=== PATIENT | female | born 1970 | race Caucasian/White ===

== ENCOUNTER 2018-05-30 16:17 | Emergency (ER) | payer BC, SELFPAY ==
[2018-05-30 16:17] VITALS: BP 142/55; PULSE 128; RESP 20; TEMP 36.2; O2SAT 98; BMI 31.6
--- NOTE | 2018-05-30 16:27 | CT_ITS ---
STUDY: CT ABDOMEN AND PELVIS WITH CONTRAST REASON FOR EXAM: Female, 48 years old. Lower abdominal pain with fever, Nausea and vomiting for 2 weeks RADIATION DOSAGE (If Supplied By Facility): CTDIvol = ( 17.24 ) mGy, DLP = ( 1139.27 ) mGycm TECHNIQUE: Transaxial images were obtained from the dome of the diaphragm to the symphysis pubis with oral contrast. 100ML ml of Isovue 300 contrast was administered. Sagittal and coronal images were reconstructed. Individualized dose optimization techniques were used for this CT. COMPARISON: 01/08/2014 FINDINGS: Mild atelectasis in the lung bases. The visualized portions of the heart are within normal limits. No hepatic masses. Mild focal fatty infiltration adjacent to the falciform ligament. There are surgical clips in the gallbladder fossa consistent with a prior cholecystectomy. Expected mild degree of intrahepatic or extra hepatic bile duct dilation. Normal spleen. Normal pancreas. There is a 1.8 cm solid nodule of the left renal gland that is larger when compared to the prior study (previously measured 8 mm). Mild under rotation of the right kidney. Normal left kidney. Normal visualized stomach. Normal small intestine. Right lateral to the sigmoid colon, there is a heterogeneous fluid collection measuring 7.8 x 4.7 x 6.6 cm with an air-fluid level (image 92). The fluid collection is contiguous with the sigmoid colon. Diffuse sigmoid colon wall thickening is identified beginning on image 86 extending to image 97. Moderate multifocal diverticulosis identified. There is a loop of small bowel superior and right lateral to the fluid collection which shows mild degree of wall thickening (less conspicuous as compared to colon wall thickening). There are surgical clips in the region of the appendix consistent with a prior appendectomy. There is diffuse atherosclerotic calcification of the abdominal aorta, without a demonstrated aneurysm. Normal inferior vena cava. Normal retroperitoneum. There is wall thickening of the superior urinary bladder wall, which is contiguous with the pelvic fluid collection. No urinary bladder air. Supraumbilical fat-containing hernia is larger when compared to the prior study. Normal osseous structures. CT/Abdomen/Pelvis WITH Contrast IMPRESSION: 1. 7.8 x 4.7 x 6.6 cm Central pelvic fluid collection with air-fluid level contiguous with sigmoid colon. Diffuse sigmoid colon wall thickening. Differential considerations include diverticular abscess versus perforation associated with neoplasm (given long segment sigmoid colon wall thickening). Probable reactive enteritis of mid ileum. Reactive wall thickening of the urinary bladder (superior) but NO urinary bladder luminal air to suggest fistula. 2. 1.8 cm left adrenal gland nodule (previously measured 8 mm). Could represent interval growth of adenoma (atypical) versus neoplasm/metastasis. Adrenal protocol MRI may be useful to distinguish. 3. Supraumbilical fat-containing hernia has increased in size since prior study. Electronically Signed: Christiano Jo MD at 18:50 EST , Service support ,
--- NOTE | 2018-05-30 16:50 | ED.DCSUM_ITS ---
- ER Visit Summary Date of Service: 05/30/18 Chief Complaint: Abdominal pain, fever History of Present Illness: The patient is a 48 F who is otherwise healthy and takes no daily medications presents with abdominal pain and fever. Patient states over the past 2 weeks, she has had worsening abdominal pain. States is worse in her left lower quadrant. She will intermittently have fevers and chills. She states she still moving her bowels without issue. She has had no diarrhea. She has had prior hysterectomy, appendectomy, cholecystectomy, and hernia repair. She has been taking ibuprofen which she states will control fever but her pain will come back. She denies any chest pain or back pain. She does admit to some urinary frequency. Physical Examination: Vital signs reviewed General: Well-nourished, well-developed Head: Normocephalic, atraumatic Eyes: Pupils equal and reactive, extraocular muscles intact Neck, supple, no lymphadenopathy Heart: Regular rate and rhythm Respiratory: No distress, clear bilaterally Abdomen: Soft, tender in the left lower quadrant with voluntary guarding, nondistended, no peritoneal signs Back: Nontender Extremities: Nontender, no edema, no cords Skin: Normal color no rash Neuro: Alert and oriented, no focal or lateralizing deficits Test Results: [] Emergency Department Course and Treatment: The patient presents with abdominal pain in the left lower quadrant with fevers and chills. She is also had nausea and vomiting. She did have voluntary guarding. I was concerned for diverticulitis, but also had concern for abscess given her progression of symptoms. IV was established. Patient was given fluids. She initially declined analgesics. However, her pain did return and she was given morphine with some improvement. Screening labs do show leukocytosis but were otherwise unremarkable. Her CT does show diverticulitis with a large intra-abdominal abscess. I did discuss the patient with Dr. Baron. Unfortunately, we do not have interventional radiology she is likely going to need a percutaneous drain. I did discuss with the patient and she requested transfer to [facility]. The patient was discussed with Dr. Irene for surgery and was accepted. She will be transferred for surgical evaluation and likely drainage. Treatment Plan: [] Disposition: Transfer Impression: 1. Acute diverticulitis with abscess This note was generated with [employer] software. It may contain incorrect words, spelling, and punctuation that were not noted in review of the chart prior to signing ED Disposition - Plan for ED Patient: Chief Complaint: Abd Pain Referrals: Wiliam Kilgore MD [Primary Care Provider] -
[2018-05-30] MEDS: Ondansetron 4 MG/2 ML Vial IV (16:55)
[2018-05-30] MEDS: 0.9% Normal Saline 1,000 ML 1000 ML IV (16:56)
[2018-05-30 17:04] LABS: Absolute Lymphocyte Count 1.21 X10^3/ul (0.83-4.51); Absolute Neutrophil Count 13.8 X10^3/uL (2.0-7.7); Basophil# 0.01 X10^3/uL; Basophil% 0.1 % (0-1); Eosinophil# 0.19 X10^3/uL; Eosinophils% 1.1 % (0-5); Hematocrit 38.2 % (37-47); Hemoglobin 12.4 g/dl (12.0-15.0); Lymphocyte # 1.21 X10^3/ul (4.0); Mean Corp Hgb Conc 32.5 g/gl (32-36); Mean Corpuscular Hgb 27.8 pg (27.0-32.0); Mean Corpuscular Volume 85.7 fL (81-99); Mean Platelet Vol. 8.9 fl (6.2-12.0); Monocyte# 2.04 X10^3/uL; Monocyte% 11.8 % (0-10); Neutrophil # 13.75 X10^3/uL (2.7-7.7); Neutrophil % 79.7 % (47-70); Platelet Count 383 K/mm3 (150-450); RBC Distribution Width CV 14.7 % (11.6-14.6); RBC Distribution Width SD 46.8 fl (35.1-43.9); Red Blood Count 4.46 M/mm3 (4.2-5.4); White Blood Count 17.3 K/mm3 (4.4-11.0)
[2018-05-30 17:05] LABS: Differential Indicated SCAN CRITERIA MET; POSITIVE COUNT NO; POSITIVE DIFFERENTIAL YES; POSITIVE MORPHOLOGY NO
[2018-05-30 17:09] LABS: Lipase 63 U/L (73-393)
[2018-05-30 17:12] LABS: Bacteria 0 SEEN /hpf (None Seen); Squamous Epithelial Cells - UA 0 SEEN /hpf (5-10)
[2018-05-30 17:19] LABS: Differential Comment SCANNED
[2018-05-30 17:23] LABS: Color, Urine Amber (Yellow); Glucose, Dipstick Normal (Normal); Ketone-Dipstick 5 mg/dl (Negative); Leukocyte Esterase-Dipstick 25 /ul (Negative); Nitrite-Dipstick Negative (Negative); Occult Blood-Urine 150 /ul (Negative); Protein-Dipstick 30 mg/dl (Negative); Urine Clarity Sl. Cloudy (Clear); Urine Urobilinogen 1 mg/dl (Normal)
[2018-05-30 17:25] LABS: Urine Bilirubin Dipstick 1 mg/dL (Negative)
[2018-05-30 17:32] VITALS: BP 114/61; PULSE 100; RESP 22; O2SAT 96
[2018-05-30 17:46] LABS: White Blood Cells 0-5 SEEN /hpf (0-5)
[2018-05-30 17:47] LABS: Red Blood Cells-Urine 0-5 SEEN /hpf (0-5)
[2018-05-30 17:48] LABS: Hyaline Cast 0-5 SEEN /lpf (0-5); Mucous, Urine 2+ /hpf (<or=2+)
[2018-05-30] MEDS: Morphine 4 MG/ML Syringe IV (17:56)
[2018-05-30 18:06] LABS: ALB/GLOB Ratio 0.5 RATIO (0.9-2.4); AST(SGOT) 21 U/L (15-37); Alanine Aminotransfer ALT/SGPT 38 U/L (13-56); Albumin, Serum 2.4 g/dL (3.2-5.0); Alkaline Phosphatase 106 U/L (45-117); Anion Gap 10 (5-15); BUN 9 mg/dL (7-18); BUN/Creat Ratio 13.7 RATIO (10-20); Calcium,Total 8.6 mg/dL (8.5-10.1); Chloride 102 mmol/L (98-107); Creatinine, Serum 0.66 mg/dL (0.55-1.02); EST Glomerular Filtration Rate 101 mL/min (>60); Est Glom Filt Rate - Afr Amer 123 mL/min (>60); Estimated Creatinine Clearance 92.78 ml/min; Globulin 5.3 g/dL (2.2-4.2); Glucose 128 mg/dL (74-106); Potassium 3.6 mmol/L (3.5-5.1); Protein, Total 7.7 g/dL (6.4-8.2); Sodium Level 138 mmol/L (136-145)
[2018-05-30] MEDS: 0.9% Normal Saline 1,000 ML 999 ML IV (18:52)
[2018-05-30] MEDS: HYDROmorphone 1 MG/ML Syringe IV (18:52)
[2018-05-30 19:17] LABS: Lactic Acid 0.5 mmol/L (0.4-2.0)
[2018-05-30 20:00] VITALS: BP 96/67; PULSE 97; RESP 16; O2SAT 94
[2018-05-30] MEDS: HYDROmorphone 0.5 MG/0.5 ML SYRINGE IV (20:25)
--- NOTE | 2018-05-30 20:29 | ED.RN ---
pt has SL in left and right AC. MD acuña with private car transfer to [facility] leaving those in. RN at [facility] aware.
== END 2018-05-30 21:00 | disposition short-term general hospital (02) ==
LOC: ED 17:08
PROVIDERS: Emergency Provider Emergency Medicine; Family Provider Family Medicine; PCP Family Medicine
DX: K57.80 Diverticulitis of intestine, part unspecified, with perforation and abscess without bleeding (principal); Z90.49 Acquired absence of other specified parts of digestive tract; Z90.710 Acquired absence of both cervix and uterus; Z72.0 Tobacco use
CPT/HCPCS: 36415; 74177; 80053; 81001; 83605; 83690; 85025; 87040; 96361; 96365; 96375; 96376; 99284; J7030; Q9967; A4216; J2405

== ENCOUNTER 2018-06-22 07:50 | Emergency (ER) | payer BC, SELFPAY ==
[2018-06-22 07:51] VITALS: BP 111/53; PULSE 144; RESP 18; TEMP 36.4; O2SAT 97; BMI 30.7
[2018-06-22 07:59] VITALS: PULSE 137; RESP 18; TEMP 36.4; O2SAT 100
--- NOTE | 2018-06-22 08:02 | CT_ITS ---
STUDY: CT ABDOMEN AND PELVIS WITH CONTRAST REASON FOR EXAM: Female, 48 years old. History of recent abscess drainage with the percutaneous drainage catheter removal. Now presents with abdominal pain and discharge. RADIATION DOSAGE (If Supplied By Facility): CTDIvol = ( 17.08 ) mGy, DLP = ( 1059.24 ) mGycm TECHNIQUE: Transaxial images were obtained from the dome of the diaphragm to the symphysis pubis without oral contrast. 100 ml of Isovue 300 contrast was administered. Sagittal and coronal images were reconstructed. Individualized dose optimization techniques were used for this CT. COMPARISON: Comparison is made with prior study dated May 30, 2018. FINDINGS: Minimal increased markings at the right lung base suggestive of bibasilar atelectasis. The visualized portions of the heart are within normal limits. Minimal dilatation of the intrahepatic biliary ducts. There are surgical clips in the gallbladder fossa consistent with a prior cholecystectomy. Normal spleen. Normal pancreas. Stable 1.8 cm nodule in the left adrenal gland. Normal right kidney. Normal left kidney. There is a small hiatal hernia. Normal small intestine. There are multiple colonic diverticula consistent with diverticulosis. The previously seen fluid collection along the mesenteric side of the sigmoid colon in the pelvis has decreased in size. It presently measures 5.3 cm x 3.1 cm. A small amount of fluid is also seen in the posterior cul-de-sac. The patient is status post appendectomy. Normal abdominal aorta. Normal inferior vena cava. Normal retroperitoneum. Normal urinary bladder. There is absence of the uterus consistent with a prior hysterectomy. Small midline ventral hernia containing fat. This is just cephalad to the umbilicus. The neck of the hernia measures 2 cm. Peritoneal fat is seen within the hernia. There is also evidence of prior mesh placement deep to the umbilicus. There is evidence of increased markings in the subcutaneous fat in the lower anterior abdominal wall. There is a focal 2.9 cm x 2.3 cm fluid collection just deep to the underlying skin in the lower anterior abdominal wall. Normal osseous structures. CT/Abdomen/Pelvis W IV Cont ONLY IMPRESSION: Residual 5.3 cm x 3.1 cm fluid collection along the mesenteric side of the sigmoid colon. This has decreased in size as compared to prior study. Increased markings in the subcutaneous tissues overlying the lower anterior abdomen with a 2.9 cm x 2.3 cm localized fluid collection. Small amount of fluid is seen in the cul-de-sac. Electronically Signed: Gómez Bass MD at 9:36 EST Tel [phone], Service support ,
--- NOTE | 2018-06-22 08:21 | ED.VISSUMM ---
- ER Visit Summary Date of Service: 06/22/18 Chief Complaint: Abdominal pain, wound drainage History of Present Illness: The patient is a 48 F who presents with abdominal pain and drainage from a previous percutaneous drain wound. 3 weeks ago she was seen here and was diagnosed with diverticulitis with an intra-abdominal abscess. She was transferred to [facility] and had a percutaneous drain. This drain was removed 4 days ago. She had a lot of pain this morning and while driving here she had a lot of drainage coming out of this wound. The pain is sharp in the lower abdomen. Nothing makes it better. She denies nausea, vomiting, diarrhea. She has no fevers currently. She is not currently on any antibiotics. Physical Examination: Vital signs reviewed. HEENT exam unremarkable. Heart is tachycardic and regular rhythm without murmurs. Lungs are clear to auscultation. Abdomen is soft with suprapubic tenderness to palpation. When palpating the area around the wound, there is drainage. Gas does come from this area as well.. Extremities reveal no edema. Skin exam normal. Neurologic exam normal. Test Results: White blood cell count 13.7. Lactate normal. CAT scan with IV contrast reveals a 5 x 3 cm intra-abdominal abscess near the sigmoid colon. She also has a 3 x 2 cm subcutaneous abscess. Emergency Department Course and Treatment: Patient was given morphine, Zofran and IV fluids. She continues to have an intra-abdominal abscess. She also has a subcutaneous abscess which is likely causing the drainage to come out from her wound where the previous drain was. At this point because the patient's symptoms and she continues to have an abscess I discussed with [facility]. They would like to see the patient today. Patient will be transferred there. She will go by private vehicle Treatment Plan: [] Disposition: Transfer Impression: Intra-abdominal abscess This note was generated with [employer] dictation software. It may contain incorrect words, spelling, and punctuation that were not noted in review of the chart prior to signing ED Disposition - Plan for ED Patient: Chief Complaint: Abd Pain Referrals: Wiliam Kilgore MD [Primary Care Provider] -
[2018-06-22] MEDS: Morphine 4 MG/ML Syringe IV (08:26)
[2018-06-22] MEDS: Ondansetron 4 MG/2 ML Vial IV (08:26)
[2018-06-22 08:28] LABS: Absolute Neutrophil Count 10.5 X10^3/uL (2.0-7.7); Basophil# 0.02 X10^3/uL; Basophil% 0.1 % (0-1); Eosinophil# 0.07 X10^3/uL; Eosinophils% 0.5 % (0-5); Hematocrit 45.5 % (37-47); Hemoglobin 14.7 g/dl (12.0-15.0); Lymphocyte % 12.4 % (19-41); Mean Corp Hgb Conc 32.3 g/gl (32-36); Mean Corpuscular Hgb 27.5 pg (27.0-32.0); Mean Platelet Vol. 9.4 fl (6.2-12.0); Monocyte# 1.42 X10^3/uL; Monocyte% 10.3 % (0-10); Neutrophil % 76.6 % (47-70); POSITIVE COUNT NO; POSITIVE DIFFERENTIAL NO; POSITIVE MORPHOLOGY NO; Platelet Count 225 K/mm3 (150-450); RBC Distribution Width CV 15.5 % (11.6-14.6); RBC Distribution Width SD 48.7 fl (35.1-43.9); Red Blood Count 5.35 M/mm3 (4.2-5.4); White Blood Count 13.7 K/mm3 (4.4-11.0)
[2018-06-22 08:44] LABS: ALB/GLOB Ratio 0.7 RATIO (0.9-2.4); AST(SGOT) 9 U/L (15-37); Alanine Aminotransfer ALT/SGPT 18 U/L (13-56); Albumin, Serum 3.4 g/dL (3.2-5.0); Alkaline Phosphatase 85 U/L (45-117); Anion Gap 9 (5-15); BUN 16 mg/dL (7-18); BUN/Creat Ratio 21.8 RATIO (10-20); Calcium,Total 9.1 mg/dL (8.5-10.1); Chloride 106 mmol/L (98-107); Creatinine, Serum 0.73 mg/dL (0.55-1.02); EST Glomerular Filtration Rate 90 mL/min (>60); Est Glom Filt Rate - Afr Amer 108 mL/min (>60); Estimated Creatinine Clearance 83.88 ml/min; Globulin 5.1 g/dL (2.2-4.2); Glucose 141 mg/dL (74-106); Protein, Total 8.5 g/dL (6.4-8.2); Sodium Level 137 mmol/L (136-145)
[2018-06-22 09:10] VITALS: BP 91/46; PULSE 112; RESP 18; TEMP 37.1; O2SAT 95
[2018-06-22] MEDS: 0.9% Normal Saline 1,000 ML 999 ML IV (09:16)
[2018-06-22 10:05] VITALS: BP 108/57; PULSE 105; PULSE 108; RESP 14; RESP 18; TEMP 37.1; O2SAT 99
[2018-06-22 10:09] VITALS: BP 103/62; PULSE 112; RESP 18; O2SAT 99
== END 2018-06-22 10:25 | disposition short-term general hospital (02) ==
PROVIDERS: Emergency Provider Emergency Medicine; Family Provider Family Medicine; PCP Family Medicine
DX: L02.91 Cutaneous abscess, unspecified (principal); Z72.0 Tobacco use
CPT/HCPCS: 74177; 80053; 83605; 85025; 99284; J7030; Q9967; A4216; J2405

== ENCOUNTER 2018-11-11 08:57 | Emergency (ER) | payer BC, SELFPAY ==
[2018-11-11 08:59] VITALS: BP 122/66; PULSE 94; RESP 16; TEMP 36.6; O2SAT 100; BMI 30.8
--- NOTE | 2018-11-11 09:09 | CT_ITS ---
STUDY: CT ABDOMEN AND PELVIS WITH CONTRAST REASON FOR EXAM: Female, 48 years old. Acute onset of abdominal pain. History of prior sigmoid diverticulitis. RADIATION DOSAGE (If Supplied By Facility): CTDIvol = ( 14.50 ) mGy, DLP = ( 1131.16 ) mGycm TECHNIQUE: Transaxial images were obtained from the dome of the diaphragm to the symphysis pubis with oral contrast. 100ml IV/Oral Isovue 300 was administered. Sagittal and coronal images were reconstructed. Individualized dose optimization techniques were used for this CT. COMPARISON: Comparison is made with a prior examination dated June 22, 2018. FINDINGS: Minimal degree of increased markings at the lung bases suggestive of atelectasis. Coronary artery calcification. There is decreased attenuation of the liver consistent with steatosis. Stable mild intrahepatic biliary ductal dilatation. There are surgical clips in the gallbladder fossa consistent with a prior cholecystectomy. Normal spleen. Normal pancreas. Normal bilateral adrenal glands. Normal right kidney. Normal left kidney. Normal visualized stomach. Normal small intestine. There are multiple colonic diverticula consistent with diverticulosis. There are surgical clips in the region of the appendix consistent with a prior appendectomy. Normal abdominal aorta. Normal inferior vena cava. Normal retroperitoneum. Normal urinary bladder. There is absence of the uterus consistent with a prior hysterectomy. Normal abdominal wall. Normal osseous structures. CT/Abdomen/Pelvis WITH Contrast IMPRESSION: No acute abnormality is seen. Electronically Signed: Gómez Bass, at 11:26 EDT , Service support ,
--- NOTE | 2018-11-11 09:10 | ED.VIS.GI ---
History of Present Illness Chief Complaint: Abd Pain Informant: Patient - Abdominal Pain/Flank Pain Onset: Today Timing: Waxes and wanes Quality: Sharp Location: Diffuse Narrative: Patient presenting for evaluation secondary to abdominal pain. Patient has a history of a somewhat recent sigmoidectomy secondary to recurrent diverticulitis. Patient states that about 7:00 this morning she had a sudden onset of colicky abdominal pain. She reports that this will come and go every 10 to 15 minutes and will last about 5 minutes at a time. He has no exacerbating relieving factors. It is not been associated with nausea vomiting diarrhea inability to pass stool or pass gas. Patient denies any presence of fevers associated with this. She is never had any prior similar episodes in the past. Pain is sharp and moderate. Review of systems otherwise negative. Past Medical History - Allergies and Home Meds Allergies/Adverse Reactions: Allergies BEE STINGS Allergy (Uncoded 11/11/18 09:02) Anaphylaxis Primary Care Physician: Wiliam Kilgore MD [Primary Care Provider] - Surgical History: - - Hysterectomy, appendectomy, cholecystectomy, carpal tunnel surgery. Smoking Status: Current every day smoker - Family History Maternal Family History: Reports: No pertinent history Paternal Family History: Reports: - - Depression, of suicide. Review of Systems All systems negative except as indicated General: Denies: Chills, Fever Gastrointestinal: Reports: Abdominal pain. Denies: Nausea, Vomiting, Diarrhea, Constipation Genitourinary: Denies: Dysuria, Hematuria Physical Exam Vital Signs/Narrative: Vital Signs Temp Pulse Resp BP Pulse Ox 11/11/18 08:59 98 F 94 16 122/66 H 100 Inital Vital Signs reviewed: Yes General: Well nourished, Well developed, - - Uncomfortable Head: Normocephalic, Atraumatic Eyes: Perrl, EOMI ENT: Moist mucous membranes, No rhinorrhea Neck: Supple, Nontender Cardiovascular: Regular rate, Regular rhythm, No murmurs Respiratory: No distress, CTA bilaterally, Chest nontender Abdomen: - - Diffuse nonlocalizing tenderness with no palpable masses. No guarding or rigidity noted. Back: Nontender, Normal Inspection Extremities: Nontender, No edema Skin: Normal color, No rash Neurological: Alert, Oriented x3, Cranial nerves II-XII grossly intact, Normal Strength, Normal Sensation Psychological: Normal affect, Normal Mood Diagnostic/Tx/Re-eval - Medical Decision Making Patient presented secondary to abdominal pain in the setting of abdominal surgery. She had diffuse pain, there was some concern for the possibility of bowel obstruction. IV was established laboratory studies were obtained patient was given morphine and Zofran for treatment of symptoms as well as IV fluids. CBC and chemistry were grossly unremarkable, patient has no evidence of elevated anion gap acidosis which makes the likelihood of bowel ischemia very low. CT abdomen and pelvis with p.o. and IV contrast shows no acute pathology. Patient had improvement on subsequent reevaluation. Patient likely is having some abdominal cramping, potentially secondary to some adhesions but there is no evidence of obstruction at this time. I do not believe that she requires admission or further work-up. Patient will be given Bentyl in the emergency department as well as for home, she was given strict return instructions and was instructed that should she not have improvement in 24 hours she should present again for repeat evaluation. She voiced understanding of this and the patient was discharged. Disposition: Home ED Disposition - Plan for ED Patient: Disposition: Home or Assisted Living Diagnosis: Abdominal pain Instructions: ED Abdominal Pain Unkn Cause Prescriptions: Dicyclomine HCl [Bentyl] 20 mg PO TIDAC #20 cap Referrals: Wiliam Kilgore MD [Primary Care Provider] - 1-2 Days if not improving
[2018-11-11] MEDS: 0.9% Normal Saline 1,000 ML 125 ML IV (09:21)
[2018-11-11] MEDS: Morphine 4 MG/ML Syringe IV (09:21)
[2018-11-11] MEDS: Ondansetron 4 MG/2 ML Vial IV (09:22)
[2018-11-11 09:29] LABS: Absolute Lymphocyte Count 2.23 X10^3/ul (0.83-4.51); Absolute Neutrophil Count 5.6 X10^3/uL (2.0-7.7); Basophil# 0.01 X10^3/uL; Basophil% 0.1 % (0-1); Eosinophil# 0.05 X10^3/uL; Eosinophils% 0.6 % (0-5); Hematocrit 47.1 % (37-47); Hemoglobin 15.7 g/dl (12.0-15.0); Lymphocyte # 2.23 X10^3/ul (4.0); Lymphocyte % 26.5 % (19-41); Mean Corp Hgb Conc 33.3 g/gl (32-36); Mean Corpuscular Volume 84.1 fL (81-99); Mean Platelet Vol. 9.7 fl (6.2-12.0); Monocyte# 0.51 X10^3/uL; Monocyte% 6.1 % (0-10); Neutrophil # 5.59 X10^3/uL (2.7-7.7); Neutrophil % 66.5 % (47-70); Platelet Count 209 K/mm3 (150-450); RBC Distribution Width CV 15.8 % (11.6-14.6); RBC Distribution Width SD 48.6 fl (35.1-43.9); White Blood Count 8.4 K/mm3 (4.4-11.0)
[2018-11-11 09:32] LABS: POSITIVE COUNT NO; POSITIVE DIFFERENTIAL NO; POSITIVE MORPHOLOGY NO
[2018-11-11 09:36] LABS: Anion Gap 8 (5-15); BUN 14 mg/dL (7-18); BUN/Creat Ratio 17.9 RATIO (10-20); Calcium,Total 9.7 mg/dL (8.5-10.1); Chloride 106 mmol/L (98-107); Creatinine, Serum 0.78 mg/dL (0.55-1.02); EST Glomerular Filtration Rate 83 mL/min (>60); Est Glom Filt Rate - Afr Amer 100 mL/min (>60); Estimated Creatinine Clearance 78.51 ml/min; Glucose 104 mg/dL (74-106); Potassium 4.4 mmol/L (3.5-5.1); Sodium Level 140 mmol/L (136-145)
[2018-11-11 10:57] VITALS: BP 107/58; PULSE 70; RESP 16; O2SAT 100
[2018-11-11] MEDS: Dicyclomine 10 MG Capsule 20 MG PO (11:52)
== END 2018-11-11 11:57 | disposition home or self-care (01) ==
PROVIDERS: Emergency Provider Emergency Medicine; Family Provider Family Medicine; PCP Family Medicine
DX: R10.9 Unspecified abdominal pain (principal); Z90.49 Acquired absence of other specified parts of digestive tract; Z90.710 Acquired absence of both cervix and uterus; F17.200 Nicotine dependence, unspecified, uncomplicated
CPT/HCPCS: 74177; 80048; 85025; 96361; 96374; 96375; 99284; J7030; Q9967; A4216; J2405

== ENCOUNTER → 2020-05-20 09:52 | Outpatient (REF) | payer BC, SELFPAY | LOC: LABSPEC 09:52 | PROVIDERS: PCP Family Medicine; Visit Provider Family Medicine | DX: Z03.818 Encounter for observation for suspected exposure to other biological agents ruled out (principal) | CPT/HCPCS: 87635; U0003 ==

== ENCOUNTER 2020-10-02 10:44 | Emergency (ER) | payer BC, SELFPAY ==
[2020-10-02 10:45] VITALS: BP 140/77; PULSE 109; RESP 18; TEMP 35.2; O2SAT 97; BMI 35.4
--- NOTE | 2020-10-02 11:51 | CT_ITS ---
STUDY: CT ABDOMEN AND PELVIS WITHOUT CONTRAST REASON FOR EXAM: Female, 50 years old. Abdominal pain. History of diverticulitis. History of cervical carcinoma. RADIATION DOSAGE (If Supplied By Facility): CTDIvol = ( 18.71 ) mGy, DLP = ( 929.97 ) mGycm TECHNIQUE: Transaxial images were obtained from the dome of the diaphragm to the symphysis pubis without oral contrast, and without intravenous contrast. Sagittal and coronal images were reconstructed. Individualized dose optimization techniques were used for this CT. COMPARISON: Comparison is made with prior examination dated 11/11/2018. FINDINGS: Stable mild increased markings at the lung bases suggestive of a scarring and/or atelectasis. The visualized portions of the heart are within normal limits. Normal liver. There are surgical clips in the gallbladder fossa consistent with a prior cholecystectomy. Normal spleen. Normal pancreas. There is a small, circumscribed, smooth, low attenuation left adrenal mass, consistent with an adrenal adenoma. This measures 2.2 cm. This is unchanged. Normal right adrenal gland. Normal right kidney. Normal left kidney. There is a small hiatal hernia. Normal small intestine. There are multiple colonic diverticula consistent with diverticulosis. The patient is status post appendectomy. There is scattered atherosclerotic calcification of the abdominal aorta, without a demonstrated aneurysm. Normal inferior vena cava. Normal retroperitoneum. Normal urinary bladder. There is absence of the uterus consistent with a prior hysterectomy. There is evidence of a large ventral hernia along the inferior abdominal wall. The neck of the hernia measures 5.4 cm. Nondilated small bowel loops are seen within the hernia. There is also evidence of a small umbilical hernia containing fat. The neck of the hernia measures 3.7 cm. There are mild degenerative changes of the visualized lumbar spine. CT/Abdomen/Pelvis without Cont IMPRESSION: There is a large lower anterior abdominal wall hernia containing nondilated small bowel loops. The hernial neck measures 5.4 cm. There is also evidence of a small umbilical hernia containing fat with the neck of the hernia measuring 3.7 cm. Stable adenoma in the right adrenal gland. Electronically Signed: Gómez Bass MD at 13:20 EDT , Service support ,
--- NOTE | 2020-10-02 11:53 | ED.VIS.GEN ---
History of Present Illness Chief Complaint: Abd Pain Narrative: Patient presents with left lower quadrant abdominal pain that started yesterday. She has a history of sigmoid diverticulitis status post colectomy in the past. She has similar symptoms to prior diverticulitis. She denies any fever or chills no constipation. No diarrhea. No nausea or vomiting no back pain or flank pain. She denies any dysuria or hematuria. Past medical history: Diverticulitis Medications: None Social history: Smoker Review of systems: All systems negative except as indicated General: Denies: Fever Eyes: Denies: Visual changes - bilaterally ENT: Denies: Rhinorrhea, Sore throat Cardiovascular: Denies: Chest pain Respiratory: Denies: Dyspnea, Cough Gastrointestinal: Nominal pain as in HPI Genitourinary: Denies: Dysuria Musculoskeletal: Denies: Myalgias Skin: Denies: Rash Neurological: Denies: Headache, no focal weakness Psych: Reports: negative Hematologic: Denies: Easy bruising, Easy bleeding Physical exam General: Appears relatively comfortable in the bed. She does not appear in significant distress. Head: Normocephalic, Atraumatic Eyes: Conjunctiva not pale ENT: Moist mucous membranes Neck: Supple, Nontender, No lymphadenopathy Cardiovascular: Regular rate, Regular rhythm Respiratory: No distress, CTA bilaterally Abdomen: Soft abdomen. There is an umbilical hernia which is reducible. Most of her pain is in the left lower quadrant there is no guarding or rebound. Back: Nontender, Normal Inspection. Negative for: CVA tenderness Extremities: Nontender, No edema Skin: Normal color, No rash Neurological: Alert, Normal Strength, Normal Sensation Psychological: Normal affect Past Medical History - Allergies and Home Meds Allergies/Adverse Reactions: Allergies BEE STINGS Allergy (Uncoded 10/02/20 10:45) Anaphylaxis Primary Care Physician: Wiliam Kilgore MD [Primary Care Provider] - Surgical History: - - Hysterectomy, appendectomy, cholecystectomy, carpal tunnel surgery. Smoking Status: Current every day smoker - Family History Maternal Family History: Reports: No pertinent history Paternal Family History: Reports: - - Depression, of suicide. Physical Exam Vital Signs/Narrative: Vital Signs Temp Pulse Resp BP Pulse Ox 10/02/20 10:45 95.4 F L 109 H 18 140/77 H 97 Diagnostic/Tx/Re-eval - Medical Decision Making Patient is found to have large abdominal wall hernia and umbilical hernia. No evidence of incarceration or bowel dilation or obstruction. Patient will be referred to surgery. I warned her that if her pain gets worse she needs to return to evaluate for bowel obstruction or incarceration. Otherwise patient will be discharged in stable condition. ED Disposition - Plan for ED Patient: Disposition: Home or Assisted Living Diagnosis: Abdominal wall hernia Instructions: ED Hernia (Adult) Prescriptions: Hydrocodone Bitart/Apap 5-325 [[place] 5MG-325MG] 1 tablet PO Q4H PRN PRN 2 Days #10 tab PRN Reason: Pain Prescription Printed Referrals: Kale Hutchins MD [STAFF PHYSICIAN] - 3-5 Days
[2020-10-02 12:19] LABS: Mucous, Urine 0 SEEN /hpf (<or=2+); Red Blood Cells-Urine 0 SEEN /hpf (0-5)
[2020-10-02 12:24] LABS: Absolute Lymphocyte Count 2.23 X10^3/uL (0.83-4.51); Absolute Neutrophil Count 7.9 X10^3/uL (2.0-7.7); Basophil# 0.03 X10^3/uL; Basophil% 0.3 % (0-1); Eosinophil# 0.09 X10^3/uL; Eosinophils% 0.8 % (0-5); Glucose, Dipstick Normal (Normal); Hematocrit 45.1 % (37-47); Hemoglobin 14.5 g/dL (12.0-15.0); Ketone-Dipstick Negative (Negative); Leukocyte Esterase-Dipstick Negative /ul (Negative); Lymphocyte # 2.23 X10^3/ul (4.0); Lymphocyte % 19.5 % (19-41); Mean Corp Hgb Conc 32.2 g/dL (32-36); Mean Corpuscular Hgb 28.8 pg (27.0-32.0); Mean Corpuscular Volume 89.5 fL (81-99); Mean Platelet Vol. 10.3 fl (6.2-12.0); Monocyte# 0.96 X10^3/uL; Monocyte% 8.4 % (0-10); NRBC Flagged by Analyzer 0 % (0-5); Neutrophil # 7.94 X10^3/uL (2.7-7.7); Neutrophil % 69.6 % (47-70); Nitrite-Dipstick Negative (Negative); Occult Blood-Urine 25 /ul (Negative); Platelet Count 217 K/mm3 (150-450); Protein-Dipstick Negative (Negative); RBC Distribution Width CV 13.4 % (11.6-14.6); RBC Distribution Width SD 43.8 fl (35.1-43.9); Red Blood Count 5.04 M/mm3 (4.2-5.4); Urine Bilirubin Dipstick Negative (Negative); Urine Urobilinogen Normal (Normal); White Blood Count 11.4 K/mm3 (4.4-11.0)
[2020-10-02] MEDS: Morphine 4 MG/ML Syringe IV (12:28)
[2020-10-02] MEDS: Ondansetron 4 MG/2 ML Vial IV (12:28)
[2020-10-02] MEDS: 0.9% Normal Saline 1,000 ML 1000 ML IV (12:28)
[2020-10-02 12:39] LABS: Color, Urine YELLOW (Yellow); Urine Clarity Clear (Clear)
[2020-10-02 12:40] LABS: ALB/GLOB Ratio 0.9 RATIO (0.9-2.4); AST(SGOT) 11 U/L (15-37); Alanine Aminotransfer ALT/SGPT 20 U/L (13-56); Albumin, Serum 3.5 g/dL (3.2-5.0); Alkaline Phosphatase 80 U/L (45-117); Anion Gap 3 (5-15); BUN 12 mg/dL (7-18); BUN/Creat Ratio 18.1 RATIO (10-20); Calcium,Total 8.8 mg/dL (8.5-10.1); Chloride 108 mmol/L (98-107); Creatinine, Serum 0.66 mg/dL (0.55-1.02); EST Glomerular Filtration Rate 100 mL/min (>60); Est Glom Filt Rate - Afr Amer 121 mL/min (>60); Estimated Creatinine Clearance 90.74 ml/min; Globulin 3.9 g/dL (2.2-4.2); Glucose 92 mg/dL (74-106); Protein, Total 7.4 g/dL (6.4-8.2); Sodium Level 138 mmol/L (136-145)
[2020-10-02 13:06] LABS: Bacteria RARE /hpf (None Seen); Squamous Epithelial Cells - UA 0-5 SEEN /hpf (5-10); White Blood Cells 0 SEEN /hpf (0-5)
[2020-10-02 14:53] VITALS: BP 104/62; PULSE 93; RESP 14; O2SAT 99
== END 2020-10-02 14:54 | disposition home or self-care (01) ==
PROVIDERS: Emergency Provider Emergency Medicine; PCP Family Medicine
DX: K43.9 Ventral hernia without obstruction or gangrene (principal); K42.9 Umbilical hernia without obstruction or gangrene; Z90.49 Acquired absence of other specified parts of digestive tract; F17.200 Nicotine dependence, unspecified, uncomplicated
CPT/HCPCS: 74176; 80053; 81001; 85025; 96361; 96374; 96375; 99283; J7030; J2405